=== PATIENT | male | born 1965 | race Caucasian/White ===

== ENCOUNTER → 2021-09-28 10:15 | Outpatient (CLI) | payer BC, SELFPAY ==
--- NOTE | ~2021-09-28 | XR_ITS ---
EXAMINATION: XR cervical spine 4-5V EXAM DATE: 09/28/2021 10:42 INDICATION: Radiculopathy, cervical region. Posterior neck pain. TECHNIQUE: Cervical spine frontal, lateral, lateral swimmers, and open-mouth odontoid projections. There is no prior study for comparison. FINDINGS: There is moderate disc disease at C5-6, mild at C6-7 with evidence of some neural foramina l stenosis at C5-6. The vertebral bodies are aligned in the AP dimension. Moderate left C2-3 facet ar thropathy. There is otherwise overall mild to moderate cervical arthropathy . The odontoid process is intact. The lateral masses of C1 line up with C2. Prevertebral soft tissue and pre-dens space are w ithin normal limits. Lung apices are clear. IMPRESSION: 1. 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 2. Less spondylosis other levels. Reviewed, dictated and finalized at location B.
== END ==
PROVIDERS: PCP Family Medicine; Visit Provider Family Medicine
DX: M54.12 Radiculopathy, cervical region (principal); M12.88 Other specific arthropathies, not elsewhere classified, other specified site; M47.812 Spondylosis without myelopathy or radiculopathy, cervical region
CPT/HCPCS: 72050